=== PATIENT | male | born 1940 | race African-American/Black ===

== ENCOUNTER 2018-09-07 10:07 | Day surgery (SDC) | payer OTHER ==
[2018-09-07 11:55] VITALS: BMI 28.7
[2018-09-07] MEDS ORDERED: THROMBIN (RECOMBINANT) 5,000 UNIT VIAL TP ONE (11:56)
[2018-09-07] MEDS ORDERED: MIDAZOLAM HCL 2 MG/2 ML SINGLE DOSE VIAL ONE (14:35)
[2018-09-07] MEDS ORDERED: PROPOFOL 20 ML ONE (14:35)
[2018-09-07] MEDS ORDERED: fentaNYL CITRATE 250 MCG/5 ML VIAL ONE (14:35)
[2018-09-07] MEDS ORDERED: ONDANSETRON 4 MG/2 ML VIAL ONE ×2 (14:35→18:25)
[2018-09-07] MEDS ORDERED: LIDOCAINE HCL/PF 2% SDV 5ML VIAL ONE (14:35)
[2018-09-07] MEDS ORDERED: ROCURONIUM BROMIDE 50 MG/5 ML VIAL ONE (14:35)
[2018-09-07] MEDS ORDERED: DEXAMETHASONE SOD PHOSPHATE 4 MG/1 ML VIAL ONE (14:35)
[2018-09-07] MEDS ORDERED: ceFAZolin SODIUM 1 GM VIAL ONE (15:07)
[2018-09-07] MEDS ORDERED: THROMBIN (BOVINE) 5,000 UNIT VIAL TP ONE ×2 (15:52→16:24)
[2018-09-07] MEDS ORDERED: GELATIN, ABSORBABLE 100 EACH SPONGE TP ONE ×2 (15:52→16:24)
[2018-09-07] MEDS ORDERED: ONDANSETRON 4 MG/2 ML VIAL IVPUSH PRN (16:54)
[2018-09-07] MEDS ORDERED: LACTATED RINGERS SOLUTION 1,000 ML IV SCH (17:00)
[2018-09-07] MEDS ORDERED: NEOSTIGMINE METHYLSULFATE 0.5 MG/ML - 10 ML MDV ONE (17:08)
[2018-09-07] MEDS ORDERED: BACITRACIN 15 GM TUBE TOPICAL OINTMENT ONE (17:16)
[2018-09-07] MEDS ORDERED: SODIUM CHLORIDE 0.45% 1,000 ML IV SCH (18:00)
[2018-09-07] MEDS ORDERED: ceFAZolin 2 GRAM PREMIX BAG IVPB SCH (18:00)
[2018-09-07] MEDS ORDERED: oxyCODONE HCL 5 MG TABLET PO PRN ×2 (18:07→18:09)
[2018-09-07] MEDS ORDERED: ACETAMINOPHEN 325 MG TABLET (FP) PO PRN ×2 (18:08→18:10)
[2018-09-07] MEDS ORDERED: ONDANSETRON 4 MG/2 ML VIAL IVPUSH ONE (18:30)
[2018-09-07] MEDS: morphine SULFATE 4 MG/ML VIAL IVPUSH PRN ×2 (19:40→23:39)
[2018-09-07] MEDS: DOCUSATE SODIUM 100 MG CAPSULE (FP) PO SCH (21:27)
[2018-09-07] MEDS: CEFAZOLIN 2 GM/D5W 2 GM/50 ML ML IVPB SCH (21:29)
[2018-09-07] MEDS ORDERED: ATORVASTATIN CA 40 MG TABLET (FP) PO SCH (22:00)
[2018-09-08] MEDS: morphine SULFATE 4 MG/ML VIAL IVPUSH PRN (04:56)
[2018-09-08] MEDS: CEFAZOLIN 2 GM/D5W 2 GM/50 ML ML IVPB SCH (05:55)
[2018-09-08 08:14] VITALS: BP 91/50; PULSE 76; TEMP 97
[2018-09-08] MEDS: DOCUSATE SODIUM 100 MG CAPSULE (FP) PO SCH (09:29)
[2018-09-08] MEDS ORDERED: LISINOPRIL 10 MG TABLET (FP) PO SCH (10:00)
--- NOTE | 2018-09-08 11:14 | PN ---
Progress Note (short form) - Note Progress Note: doing well, back painful AVSS wound intact, seronsaguinous drainage NVID -oo/pt -d/c today -daily dressing changes until woun dry -f/u next week -will restart plavix in 48hrs
[2018-09-08] MEDS ORDERED: CYCLOBENZAPRINE HCL 10 MG TABLET (FP) PO ONE (13:30)
--- NOTE | 2018-09-09 17:25 | OP ---
DATE OF OPERATION: 09/07/2018 PREOPERATIVE DIAGNOSIS: Lumbar spinal stenosis with neurogenic claudication. POSTOPERATIVE DIAGNOSIS: Lumbar spinal stenosis with neurogenic claudication. PROCEDURE PERFORMED: Two-level lumbar decompressive laminectomy at L2-3 and L3-4. SURGEON: Aiden Geronimo MD CIVIL CAD TECH: JUDSON Connor ANESTHESIA: General. INDICATION: The patient is a 77-year-old male with persistent and severe radiating pain in the lower extremities and difficulty ambulating for greater than 6 months. He has been refractory to management with physical therapy, oral medication, and epidural steroid injections. The patient is indicated for decompressive surgery. Risks, benefits, and alternatives of the surgery were discussed in detail with the patient, and informed consent was obtained. DESCRIPTION OF THE PROCEDURE: The patient was brought into the operating room by stretcher, and general endotracheal anesthesia was administered by the anesthesiologist. The patient was then flipped into the prone position onto padded Brando frame. All bony prominences were padded. The back was then prepped and draped in the usual sterile fashion with a fluoroscopic C-arm to allow for localizing radiographs. A timeout was performed and prophylactic IV antibiotics were administered. A midline incision was then made in the spine at the appropriate levels. Dissection was carried down to the level of the fascia, and the fascia was split with electrocautery. Subperiosteal dissection was carried down, exposing the bony spine. The level was verified with a deep fluoroscopic radiograph. The L3 and L2 laminae were then exposed and a deep retractor was placed. A complete decompressive laminectomy at the L3-4 level was performed, with a subtotal L3 laminectomy. There was noted to be severe spinal stenosis and hypertrophic ligamentum flavum in keeping with the preoperative MRI. A complete decompressive laminectomy of the L2-3 level was then also performed with a subtotal L2 laminectomy. A bridge of bone was left at each lamina for increased stability. The laminectomies were carried to the pedicles bilaterally with medial facetectomies and foraminotomies. The ligamentum flavum was then excised at both levels, showing excellent decompression overall. No durotomy was identified. The wound was then copiously irrigated. The deep fascia was closed with No. 1 Vicryl suture. The deep dermal tissues were approximated with 2-0 Vicryl suture. The skin was closed with carie. A sterile dressing was applied. The patient tolerated the procedure well without complications. Zulma [id number]
== END 2018-09-08 14:25 | disposition home health service (06) ==
LOC: FASU 10:07 → FM/S 19:13 → FASU 09-08 14:25
PROVIDERS: ATTEND Orthopaedic Surgery Orthopaedic Surgery of the Spine
PROC: 01NB0ZZ Release Lumbar Nerve, Open Approach (ICD-10-PCS; principal; 2018-09-07 15:23)
DX: M48.062 Spinal stenosis, lumbar region with neurogenic claudication (principal)
CPT/HCPCS: 94760; 97116-GP; 97162-GP

== ENCOUNTER 2018-09-25 10:33 | Emergency (ER) | payer OTHER ==
--- NOTE | 2018-09-25 10:35 | PDOC ---
History of Present Illness - General Chief Complaint: Pain Stated Complaint: LEFT LEG SWOLLEN & PAINFUL Time Seen by Provider: 09/25/18 10:35 - History of Present Illness Initial Comments: 09/25/18 10:53 77yo male presents ambulatory from home c/o L calf pain. Pt had spinal laminectomy surgery on 09/09. Pt states he has been up and walking around. States the L calf pain started about 3 days ago, today he mentioned the pain to his ex- and they called orthopedics who recommended the patient come in for evaluation. Pt denies trauma. Pt states hx of varicose veins and has pain in the upper calf and behind the knee. States the vein looks more swollen than normal. Pt denies falls. Denies cp/sob/palpitations. Pt denies abd pain. No n/v/ d. No dysuria. Lumbar surgery with carie in place, no drainage from the wound. Pt sent in for eval of L calf swelling. PMHx: cad, htn, hld PShx: achilles tendon repair b/l, CABG, laminectomy Allergies: NKDA Past History - Past Medical History Allergies/Adverse Reactions: Allergies Allergy/AdvReac Type Severity Reaction Status Date / Time No Known Allergies Allergy Verified 09/25/18 10:41 Home Medications: Ambulatory Orders Aspirin [ASA -] 81 mg PO BID 08/09/18 Clopidogrel Bisulfate [Clopidogrel] 75 mg PO DAILY 08/09/18 Lisinopril 10 mg PO DAILY 08/09/18 Acetaminophen [Tylenol] 650 mg PO BID PRN 09/07/18 Atorvastatin Ca [Lipitor] 40 mg PO HS 09/07/18 Ibuprofen [Advil -] 800 mg PO BID PRN 09/07/18 Metoprolol Succinate 25 mg PO DAILY 09/25/18 Anemia: No Asthma: No Cancer: No Cardiac Disorders: Yes (MA 1997-LAST STRESS TEST FEW YEARS AGO-BEEN ON PLAVIX SINCE 2005 ANGIOPLAST) CVA: No COPD: No CHF: No Dementia: No Diabetes: No GI Disorders: No Disorders: No HTN: Yes Hypercholesterolemia: No Liver Disease: No Seizures: No Thyroid Disease: No - Surgical History Abdominal Surgery: Yes (UMBILICAL HERNIA REPAIR A CHILD) Appendectomy: No Cardiac Surgery: Yes (ANGIOPLASTY 2005) Cholecystectomy: No Lung Surgery: No Neurologic Surgery: No Orthopedic Surgery: Yes (ACHILLES TENDON REPAIR RIGHT AND LEFT-) - Suicide/Smoking/Psychosocial Hx Smoking History: Never smoked Have you smoked in the past 12 months: No Hx Alcohol Use: No Drug/Substance Use Hx: Yes (CANNIBAS OIL DAILY-VAPES) Substance Use Type: Marijuana Hx Substance Use Treatment: No Review of Systems - Review of Systems Able to Perform ROS?: Yes Is the patient limited Bermudian proficient: No Constitutional: No: Chills, Fever HEENTM: No: Nose Pain, Nose Congestion, Throat Pain Respiratory: No: Cough, Shortness of Breath Cardiac (ROS): No: Chest Pain, Lightheadedness, Palpitations ABD/GI: No: Diarrhea, Nausea, Vomiting, Abdominal cramping : No: Burning, Dysuria Musculoskeletal: Yes: Back Pain, Muscle Pain (L calf pain). No: Neck Pain Integumentary: Yes: Rash (L ankle rash x 2 years) Neurological: No: Headache, Numbness, Paresthesia All Other Systems: Reviewed and Negative *Physical Exam - Vital Signs 09/25/18 10:57 Selected Entries 09/25/18 10:35 Temperature 98.4 F Pulse Rate 88 Pulse Rhythm [ Regular Left Dorsalis Pedis] Pulse Strength Normal [Left Dorsalis Pedis] Respiratory 16 Rate Blood Pressure 116/72 Blood Pressure 86 Mean O2 Sat by Pulse 100 Oximetry (%) Weight 79.379 kg - Physical Exam General Appearance: Yes: Nourished, Appropriately Dressed. No: Apparent Distress HEENT: positive: EOMI, Normal Voice Neck: positive: Supple Respiratory/Chest: positive: Lungs Clear, Normal Breath Sounds. negative: Respiratory Distress Cardiovascular: positive: Regular Rhythm, Regular Rate, S1, S2 Gastrointestinal/Abdominal: positive: Normal Bowel Sounds, Flat, Soft. negative : Guarding, Rebound, Tenderness Musculoskeletal: positive: Other (lumbar spine midline incision, no redness, no drainage, carie in place, mild ttp over incision site) Extremity: positive: Normal Capillary Refill, Calf Tenderness (L calf ttp over varicose vein and in the popliteal fossa, pedal pulses intact, sensation intact) Integumentary: positive: Dry, Warm, Other (lumbar incision-c/d/i, skin changes x 2 years with slight darker discoloration/scaling skin to lateral ankle LLE) Neurologic: positive: Fully Oriented, Alert, Normal Mood/Affect Medical Decision Making - Medical Decision Making 09/25/18 10:59 a/p: 77yo male s/p laminectomy sx with Dr. Geronimo with L calf pain, swelling, increased size of varicose veins -will send for duplex ultrasound -neuro intact -no incision drainage, no cellulitis -will monitor and reassess 09/25/18 12:25 no dvt superficial thrombophlebitis in popliteal fossa pt on asa and plavix discussed follow up and management pt stable for dc to home to follow up with Dr. Geronimo as scheduled on Thursday pt with varicose veins- will give vascular sx follow up as he mentioned poss vein stripping *DC/Admit/Observation/Transfer Diagnosis at time of Disposition: Superficial thrombophlebitis of left leg - Discharge Dispostion Disposition: HOME Condition at time of disposition: Stable Decision to Admit order: No - Referrals Referrals: Ron Kidd MD [Primary Care Provider] - Aiden Geronimo MD [Staff Physician] - Carlos Short MD [Non Staff, Medical] - - Patient Instructions Printed Discharge Instructions: DI for Superficial Thrombophlebitis Additional Instructions: Please keep your appointment with your orthopedist as scheduled for thursday. Please apply warm compresses to the leg. Please take all medications as prescribed. Please return to the ED with any further concerns or complaints. Please follow up with the vascular surgeon as discussed for further management of your varicose veins. - Post Discharge Activity - Attestations Physician Attestion: 09/25/18 12:27 I, Dr. Lexie Hernandez, DO, attest that this document has been prepared under my direction and personally reviewed by me in its entirety. I further attest, that it accurately reflects all work, treatment, procedures and medical decision -making performed by me.
[2018-09-25 10:59] VITALS: BP 116/72; PULSE 88; TEMP 98.4; BMI 26.6
== END 2018-09-25 12:38 | disposition home or self-care (01) ==
LOC: FER 10:33
DX: I80.02 Phlebitis and thrombophlebitis of superficial vessels of left lower extremity (principal); I25.10 Atherosclerotic heart disease of native coronary artery without angina pectoris; I10 Essential (primary) hypertension; Z95.5 Presence of coronary angioplasty implant and graft; Z79.01 Long term (current) use of anticoagulants
CPT/HCPCS: 93970-TC; 99282-25